=== PATIENT | male | born 1945 | race African-American/Black ===

== ENCOUNTER 2018-05-11 16:40 | Inpatient (IN) | payer OTHER, MEDICARE ==
[~2018-05-11] VITALS: Ht 177.8 cm; Wt 115.7 kg
[2018-05-11] MEDS ORDERED: SODIUM CHLORIDE 0.9% 1,000 ML IV ONE (17:00)
[2018-05-11 18:05] LABS: BASOPHILS % 0.8 % (0.0-2.0); EOSINOPHILS % 0.4 % (0.0-5.0); HEMATOCRIT. 37.7 % (42.0-52.0); HEMOGLOBIN. 12.3 g/dL (14.0-18.0); LYMPHOCYTES % 30.6 % (20.0-50.0); MEAN CORPUSCULAR HEMOGLOBIN 29.7 pg (28.0-32.0); MEAN CORPUSCULAR VOLUME 90.6 fL (80.0-94.0); MEAN PLATELET VOLUME 11.7 fl (7.4-10.4); MONOCYTES % 7.7 % (2.0-8.0); NEUTROPHILS % 60.5 % (40.0-76.0); PLATELET 148 x1000/uL (130-400); RED BLOOD CELL COUNT 4.16 mill/uL (4.7-6.1); RED CELL DISTRIBUTION WIDTH 14.6 % (11.6-14.6)
[2018-05-11 18:08] LABS: CHLORIDE 108 mEq/L (98-107)
[2018-05-11 18:11] LABS: INR 1.1; PARTIAL THROMBOPLASTIN TIME 27.9 sec (23.4-31.0); PROTHROMBIN TIME 10.7 sec (9.1-11.1)
[2018-05-11 18:14] LABS: ETHANOL BLOOD < 10 mg/dL
[2018-05-11 18:47] LABS: CLARITY URINE CLEAR (CLEAR); COLOR URINE YELLOW (YELLOW); KETONES URINE TRACE (NEGATIVE); LEUKOCYTE ESTERASE URINE NEGATIVE (NEGATIVE); NITRITE URINE NEGATIVE (NEGATIVE); OCCULT BLOOD URINE NEGATIVE (NEGATIVE); PH URINE 6.5 (4.5-8.0); PROTEIN URINE NEGATIVE (NEGATIVE); SPECIFIC GRAVITY URINE 1.018 (1.005-1.030)
[2018-05-11 18:59] LABS: *BARBITURATES SCREEN URINE NEGATIVE (NEGATIVE); *BENZODIAZEPINES SCREEN URINE NEGATIVE (NEGATIVE)
[2018-05-11 19:00] LABS: *AMPHETAMINES SCREEN URINE NEGATIVE (NEGATIVE); *COCAINE SCREEN URINE NEGATIVE (NEGATIVE); CANNABINOID URINE SCREEN NEGATIVE (NEGATIVE); METHADONE URINE SCREEN NEGATIVE (NEGATIVE); OPIATES URINE SCREEN NEGATIVE (NEGATIVE); PHENCYCLIDINE URINE SCREEN NEGATIVE (NEGATIVE)
[2018-05-12] VITALS (18 sets, daily range): BP systolic 123–170; BP diastolic 60–91
[2018-05-12] MEDS ORDERED: DEXTROSE 50% WATER 50ML SYRINGE IV PRN (02:15)
[2018-05-12] MEDS: AMLODIPINE 10MG TABLET PO SCH (03:16)
[2018-05-12] MEDS: BLOOD SUGAR DIAGNOSTIC STRIP TEST SCH ×4 (06:50→21:26)
[2018-05-12] MEDS: INSULIN LISPRO 100 UNITS/ML SUBCUT SCH ×4 (07:20→21:25)
[2018-05-12] MEDS: ASPIRIN 325MG EC TABLET PO SCH (08:22)
[2018-05-12] MEDS ORDERED: MECLIZINE 25MG TABLET PO PRN (09:30)
[2018-05-12] MEDS ORDERED: CLONIDINE 0.1MG TABLET PO PRN (10:45)
[2018-05-12 11:33] LABS: BASOPHILS % 1.4 % (0.0-2.0); CHLORIDE 106 mEq/L (98-107); EOSINOPHILS % 0.5 % (0.0-5.0); HEMATOCRIT. 41.6 % (42.0-52.0); HEMOGLOBIN. 13.5 g/dL (14.0-18.0); LYMPHOCYTES % 31.3 % (20.0-50.0); MEAN CORPUSCULAR HEMOGLOBIN 29.7 pg (28.0-32.0); MEAN CORPUSCULAR VOLUME 91.1 fL (80.0-94.0); MEAN PLATELET VOLUME 11.7 fl (7.4-10.4); MONOCYTES % 6.3 % (2.0-8.0); NEUTROPHILS % 60.5 % (40.0-76.0); PLATELET 149 x1000/uL (130-400); RED BLOOD CELL COUNT 4.56 mill/uL (4.7-6.1); RED CELL DISTRIBUTION WIDTH 14.5 % (11.6-14.6)
[2018-05-12 11:40] LABS: LDL CHOLESTEROL 100 mg/dL (5-100)
[2018-05-12 11:41] LABS: HDL CHOLESTEROL 30 mg/dL (40-59)
[2018-05-12] MEDS ORDERED: APIX5TAB MT (11:43)
[2018-05-12] MEDS ORDERED: DOCU-286 PO (11:43)
[2018-05-12] MEDS ORDERED: COR12 PO (11:43)
[2018-05-12] MEDS ORDERED: LOSA100T14 PO (11:43)
[2018-05-12] MEDS ORDERED: NIFE90TA34 PO (11:43)
[2018-05-12] MEDS ORDERED: METH-612 MT (11:43)
[2018-05-12] MEDS ORDERED: METF-416 MT (11:43)
[2018-05-12] MEDS ORDERED: TERA2CAP4 PO (11:43)
[2018-05-12] MEDS ORDERED: ATOR80TA PO (11:43)
[2018-05-12] MEDS ORDERED: DIPH25CA83 PO (11:43)
[2018-05-12] MEDS ORDERED: ASPI-1159 PO (11:43)
[2018-05-12] MEDS ORDERED: OMEG-118 MT (11:43)
[2018-05-12] MEDS: LOSARTAN POTASSIUM 50 MG TABLET PO SCH (12:02)
[2018-05-12] MEDS ORDERED: ENOXAPARIN 40MG/0.4ML SYR SUBCUT NR (16:00)
[2018-05-12] MEDS: INSULIN GLARGINE UD 100 UNITS/ML SYR SUBCUT SCH (21:25)
[2018-05-13] VITALS (16 sets, daily range): BP systolic 124–166; BP diastolic 32–86
[2018-05-13] MEDS: BLOOD SUGAR DIAGNOSTIC STRIP TEST SCH ×3 (06:05→17:21)
[2018-05-13 06:41] LABS: BASOPHILS % 2.1 % (0.0-2.0); EOSINOPHILS % 1.4 % (0.0-5.0); HEMATOCRIT. 36.4 % (42.0-52.0); HEMOGLOBIN. 11.8 g/dL (14.0-18.0); LYMPHOCYTES % 41.7 % (20.0-50.0); MEAN CORPUSCULAR HEMOGLOBIN 29.5 pg (28.0-32.0); MEAN CORPUSCULAR VOLUME 90.5 fL (80.0-94.0); MEAN PLATELET VOLUME 12.1 fl (7.4-10.4); MONOCYTES % 6.3 % (2.0-8.0); NEUTROPHILS % 48.5 % (40.0-76.0); PLATELET 142 x1000/uL (130-400); RED BLOOD CELL COUNT 4.02 mill/uL (4.7-6.1); RED CELL DISTRIBUTION WIDTH 14.3 % (11.6-14.6)
[2018-05-13 08:04] LABS: CHLORIDE 108 mEq/L (98-107)
[2018-05-13] MEDS: LOSARTAN POTASSIUM 50 MG TABLET PO SCH (08:55)
[2018-05-13] MEDS: AMLODIPINE 10MG TABLET PO SCH (08:55)
[2018-05-13] MEDS: ASPIRIN 325MG EC TABLET PO SCH (08:55)
[2018-05-13] MEDS: ENOXAPARIN 30MG/0.3ML SYR SUBCUT SCH ×2 (08:57→16:46)
[2018-05-13] MEDS: INSULIN LISPRO 100 UNITS/ML SUBCUT SCH ×3 (09:05→16:58)
[2018-05-13] MEDS: INSULIN GLARGINE UD 100 UNITS/ML SYR SUBCUT SCH (11:07)
[2018-05-13] MEDS ORDERED: NIFE90TA34 PO (15:44)
[2018-05-14] MEDS ORDERED: LOSARTAN POTASSIUM 100 MG TABLET PO SCH (09:00)
== END 2018-05-13 17:10 | disposition home or self-care (01) | DRG 48 ==
LOC: ER 16:40 → 3WST 18:15 → ENRESERV 23:26
PROVIDERS: ADMIT Internal Medicine; ATTEND Internal Medicine
DX: G90.8 Other disorders of autonomic nervous system (principal); E87.8 Other disorders of electrolyte and fluid balance, not elsewhere classified; D64.9 Anemia, unspecified; E66.9 Obesity, unspecified; E11.9 Type 2 diabetes mellitus without complications; E78.5 Hyperlipidemia, unspecified; R00.1 Bradycardia, unspecified; I10 Essential (primary) hypertension; I25.118 Atherosclerotic heart disease of native coronary artery with other forms of angina pectoris; M43.12 Spondylolisthesis, cervical region; M50.30 Other cervical disc degeneration, unspecified cervical region; I44.0 Atrioventricular block, first degree; M54.9 Dorsalgia, unspecified; Z68.36 Body mass index [BMI] 36.0-36.9, adult; I25.2 Old myocardial infarction; Z88.5 Allergy status to narcotic agent
CPT/HCPCS: 36415; 70551; 71045; 80048; 80061; 80305; 82962; 83735; 83880; 84443; 84484; 93005; 93306; 96360; 97162; 99285; G0482; J1650; J1815; J7030